=== PATIENT | female | born 1945 | race Caucasian/White ===

== ENCOUNTER 2022-10-29 08:14 | Inpatient (IN) ==
--- NOTE | 2022-07-27 15:53 | PAT Medication Instructions ---
Medication Instructions Date of Service July 27, 2022 Home Medications fluoxetine 20 mg capsule (Prozac) 20 mg PO QAM xxgngwl-btnunxlsra-RXE-caffeine 30 mg-50 mg-325 mg-40 mg capsule 1 cap PO Q6H PRN diazepam 5 mg tablet (Valium) 5 mg PO BID PRN gabapentin 100 mg capsule 100 mg PO QPM loperamide 2 mg capsule 2 mg PO Q4H PRN mirabegron 50 mg tablet,extended release 24 hr (Myrbetriq) 50 mg PO QAM pantoprazole 20 mg tablet,delayed release 20 mg PO QAM tolterodine 4 mg capsule,extended release 24 hr 4 mg PO QPM tretinoin 1 dose topical DAILY ASK your surgeon for instructions ykddcbk-llmlydhdvq-OKL-caffeine 30 mg-50 mg-325 mg-40 mg capsule 1 cap PO Q6H PRN STOP taking 24 hours before surgery tretinoin 1 dose topical DAILY DO NOT take the morning of surgery loperamide 2 mg capsule 2 mg PO Q4H PRN mirabegron 50 mg tablet,extended release 24 hr (Myrbetriq) 50 mg PO QAM Take morning of surgery With a small sip of water, OTHERWISE NOTHING TO EAT OR DRINK AFTER MIDNIGHT: pantoprazole 20 mg tablet,delayed release 20 mg PO QAM diazepam 5 mg tablet (Valium) 5 mg PO BID PRN(if needed) fluoxetine 20 mg capsule (Prozac) 20 mg PO QAM Take evening before surgery tolterodine 4 mg capsule,extended release 24 hr 4 mg PO QPM gabapentin 100 mg capsule 100 mg PO QPM diazepam 5 mg tablet (Valium) 5 mg PO BID PRN(if needed) Other Notes If you have any questions please call us at [phone] or [phone] or [phone] or [phone]
--- NOTE | 2022-08-02 14:04 | Anesthesiology Consultation ---
Date of Service August 02, 2022 Assessment & Plan (1) Encounter for pre-operative examination: - leukopenia, anemia, abnormal ua: Raquel with surgeon's office made aware. Optimization form sent to PCP, awaiting response. Chart Review Chart Review: Pending: Refer to Additional Notes / Consult section and Patient seen in Pre Admission Testing Teaching & Discussion Pre-Anesthesia Teaching/Discussion Notes: Instructed NPO after midnight before surgery, except medications with 15 cc of water. Medication instructions provided according to the PAT guidelines. History Surgery Operation Date: 08/16/22 11:55 Proposed Procedures p L2-L4 Decompression and Fusion, L4-S1 Hardware Removal, Possible L4-S1 Reinstrumentation, Spinal Cord Monitoring - Isak Mayes, Height/Weight Height: 5 ft 5 in Weight: 64 kg Allergies Allergy/AdvReac Type Severity Reaction Status Date / Time morphine Allergy Unknown family hx Verified 07/27/22 15:03 allergy to morphine. propranolol Allergy severe Verified 07/27/22 15:03 hypotension Medications Home Medications Medication Instructions Recorded Confirmed Last Taken fluoxetine 20 mg capsule (Prozac) 20 mg PO QAM 12/19/19 07/27/22 Unknown mqpnupg-dnmrsbpqmf-RHF-caffeine 30 1 cap PO Q6H PRN Migraine Headache 07/27/22 07/27/22 Unknown mg-50 mg-325 mg-40 mg capsule diazepam 5 mg tablet (Valium) 5 mg PO BID PRN Anxiety 07/27/22 07/27/22 Unknown gabapentin 100 mg capsule 100 mg PO QPM 07/27/22 07/27/22 Unknown loperamide 2 mg capsule 2 mg PO Q4H PRN Loose Stool 07/27/22 07/27/22 Unknown mirabegron 50 mg tablet,extended 50 mg PO QAM 07/27/22 07/27/22 Unknown release 24 hr (Myrbetriq) pantoprazole 20 mg tablet,delayed 20 mg PO QAM 07/27/22 07/27/22 Unknown release tolterodine 4 mg capsule,extended 4 mg PO QPM 07/27/22 07/27/22 Unknown release 24 hr tretinoin 1 dose topical DAILY 07/27/22 07/27/22 Unknown Past Medical History Medical History (Updated 08/02/22 @ 14:12 by Irene Joyner PA-C) Depression Fibromyalgia GERD (gastroesophageal reflux disease) controlled, stable per pt Hearing deficit BL ROBISON History of claustrophobia History of migraine resolved since d/c of propranolol IBS (irritable bowel syndrome) Imodium prn Spinal stenosis Urinary frequency chronic Urinary incontinence Patient denies h/o stroke, seizures, heart attack, heart failure, DM, HTN, blood clots or blood transfusions. Exercise / Class Metabolic Activity II 4-5 Yardwork/Stairs/Walk up hill (denies chest discomfort or shortness of breath with 1 FOS) Past Family History Family History Mother Pancreatic cancer Past Surgical History Surgical History H/O Billroth II operation H/O shoulder surgery Rt History of back surgery x 2 History of cataract surgery History of cholecystectomy History of colonoscopy History of esophagogastroduodenoscopy (EGD) History of knee replacement Left History of non-cataract eye surgery History of open reduction and internal fixation (ORIF) procedure LLE History of total abdominal hysterectomy and bilateral salpingo-oophorectomy Hx of appendectomy Hx of tonsillectomy Past Anesthesia History Other (post-op reaction of confusion/anxiety; family history of morphine reaction) History of PONV No Hx of PONV and No Hx of Motion Sickness Social History Smoking Status: Never smoker Do You Dip or Chew Tobacco: No Hx Alcohol Use: Yes (social) Alcohol type: wine alcohol intake frequency: a few times a week Hx Substance Use: No substance use type: does not use Review of Systems Snoring, denies witnessed apneas. Patient denies chest pain, shortness of breath, dyspnea on exertion, fever, chills, cough, wheezing, or palpitations. Physical Exam Vital Signs Vitals BP 114/75 P 55 TEMP 97.7 SP02 97% on RA RESP 17 Physical Full cervical extension range of motion without pain TMD 3.5 finger breadths Mallampati Score 2 Dentition: several crowns, denies chipped or loose teeth, caps, implants or bridges Lungs: normal respiratory effort. Good air movement, clear throughout to auscultation, no adventitious breath sounds Cardiac: regular rate and rhythm, no murmurs noted Carotid arteries: negative bruit bilat Lab Results Anesthesia Preop Results Results Anesthesia Widget: WBC 3.71 K/ul (4.8-10.8) L 08/02/22 Hgb 10.9 g/dl (12.0-16.0) L 08/02/22 Hct 33.5 % (37.0-47.0) L 08/02/22 Plt 160 K/uL (130-400) 08/02/22 Na 138 mmol/L (136-145) 08/02/22 K 4.5 mmol/L (3.5-5.1) 08/02/22 Cl 108 mmol/L (98-107) H 08/02/22 CO2 26 mmol/L (21-32) 08/02/22 BUN 19 mg/dl (6-23) 08/02/22 Creat 1.10 mg/dl (0.6-1.2) 08/02/22 Glucose Level 83 mg/dl (70-99(Fasting)) 08/02/22 PT 10.9 Seconds (9.0-12.0) 08/02/22 PTT 32.2 Seconds (21.0-31.0) H 08/02/22 INR 1.0 (0.9-1.1) 08/02/22 Urine Color Yellow 08/02/22 Urine Appearance Cloudy (Clear) A 08/02/22 Urine pH 5.0 (4.5-7.5) 08/02/22 Urine Specific [place] 1.011 (1.000-1.030) 08/02/22 Urine Protein Negative (Negative) 08/02/22 Urine Glucose (UA) Negative (Negative) 08/02/22 Urine Ketones Negative (Negative) 08/02/22 Urine Blood 1+ (Negative) H 08/02/22 Urine Nitrite Positive (Negative) A 08/02/22 Urine Bilirubin Negative (Negative) 08/02/22 Urine Urobilinogen Negative (Negative) 08/02/22 Urine Leukocyte Esterase 2+ (Negative) H 08/02/22 Urine WBC (Auto) >30 /hpf (0-5) H 08/02/22 Urine RBC (Auto) 0-4 /hpf (0-4) 08/02/22 Urine Hyaline Casts (Auto) 1-5 /lpf (0-5) 08/02/22 Urine Epithelial Cells (Auto) 20-30 /lpf (0-5) H 08/02/22 Urine Bacteria (Auto) 2+ (Negative) H 08/02/22 Blood Type A Positive 08/02/22 Antibody Screen NEGATIVE 08/02/22 Testing Electrocardiogram Date: 08/02/22 Sinus bradycardia, rate 52 bpm Chest X-Ray Date: 08/02/22 No acute cardiopulmonary findings. COVID-19 Risk Screen Screening Information COVID-19 Screen Date: 08/02/22 Exposure 21 Days Family/Household +COVID Last 21 Days: No Exposure 10 Days Any COVID Exposure Last 10 Days: No Symptoms Last 10 Days Experienced COVID Sx Last 10 Days: No + COVID 0-90 Days COVID + in Last 0-90 Days: No
[~2022-10-29 08:14] MED LIST: ACETAMINOPHEN 500 MG TAB PO SCH; CeleBREX 200 MG CAP PO SCH; GABAPENTIN 300 MG CAP PO SCH; LR 60ML/HR IV SCH; ceFAZolin 2000MG 2,000 MG/15 ML SYR IV SCH
[2022-10-29] MEDS ORDERED: MIDAZOLAM HCL 1 MG/ML 2ML VIAL ONE (08:24)
[2022-10-29] MEDS ORDERED: HYDROmorphone INJ 2 MG/ML SYR/VIAL ONE (08:24)
[2022-10-29] MEDS ORDERED: KETAMINE 50 MG/5 ML SYRINGE ONE (08:24)
--- NOTE | 2022-10-29 09:22 | History & Physical Bridge Note ---
Date of Service October 29, 2022 History & Physical Bridge Note I have examined the patient, reviewed the History & Physical and in the interval since the performance of the History & Physical I have noted the following changes of clinical significance: no changes noted
--- NOTE | 2022-10-29 09:23 | History & Physical Report ---
Date of Service October 29, 2022 Assessment & Plan (1) Lumbar stenosis with neurogenic claudication: Plan: L2-L4 decompression and fusion, L4-S1 hardware removal, possible L4-S1 reinstrumentation History of Present Illness Chief Complaint: Back and leg pain Primary Care Provider: Gary Deleon This is a 77-year-old female known to me presents with worsening back and bilateral knee pain after failing course of nonoperative care she is here for surgical invention. Allergies Allergy/AdvReac Type Severity Reaction Status Date / Time propranolol Allergy Severe severe Verified 10/29/22 08:44 hypotension morphine Allergy Unknown family hx Verified 10/29/22 08:44 allergy to morphine. Home Medications Medication Instructions Recorded Confirmed Type fluoxetine 20 mg capsule (Prozac) 20 mg PO QAM 12/19/19 10/29/22 History fcbhlcd-qdceaawwzi-COF-caffeine 30 1 cap PO Q6H PRN Migraine Headache 07/27/22 10/29/22 History mg-50 mg-325 mg-40 mg capsule diazepam 5 mg tablet (Valium) 5 mg PO BID PRN Anxiety 07/27/22 10/29/22 History gabapentin 100 mg capsule 100 mg PO QPM 07/27/22 10/29/22 History loperamide 2 mg capsule 2 mg PO Q4H PRN Loose Stool 07/27/22 10/29/22 History mirabegron 50 mg tablet,extended 50 mg PO QAM 07/27/22 10/29/22 History release 24 hr (Myrbetriq) tolterodine 4 mg capsule,extended 4 mg PO QPM 07/27/22 10/29/22 History release 24 hr (Detrol LA) tretinoin 1 dose topical DAILY 07/27/22 10/29/22 History trimethoprim 100 mg tablet 100 mg PO HS 10/19/22 10/29/22 History Past Med/Surg History Medical History Depression Fibromyalgia GERD (gastroesophageal reflux disease) controlled, stable per pt Hearing deficit BL ROBISON History of claustrophobia History of migraine resolved since d/c of propranolol Hx of syncope caused by hypotension was hospitalized at [facility] ~08/2022 - discontinued Inderal, no issues since; Hx: UTI (urinary tract infection) 07/2022 IBS (irritable bowel syndrome) Imodium prn Spinal stenosis Urinary frequency chronic Urinary incontinence Surgical History H/O Billroth II operation H/O shoulder surgery Rt History of back surgery x 2 History of cataract surgery History of cholecystectomy History of colonoscopy History of esophagogastroduodenoscopy (EGD) History of knee replacement Left History of non-cataract eye surgery History of open reduction and internal fixation (ORIF) procedure LLE History of total abdominal hysterectomy and bilateral salpingo-oophorectomy Hx of appendectomy Hx of tonsillectomy Family History Mother Pancreatic cancer Social History Smoking Status: Never smoker Second Hand Exposure: Yes (hx); Do You Dip or Chew Tobacco: No; Tobacco Cessation Education Requested by Patient: No Hx Alcohol Use: Yes (social) Alcohol type: wine and hard liquor Hx Substance Use: No Preferred Language: Maldivian Communication Ability: Effective Wet Finisher Required: No Beliefs That Will Affect Care: None Current Living Situation: Significant Other Other Information That Helps Us Care for You: No Feels Safe at Home: Yes Safety Concerns: Feels Safe At This Time Assistive Devices: Glasses and Hearing Aid - Bilateral Assistive Devices Comment: glasses for reading Physical Exam Physical Exam: Patient is alert and oriented Heart regular rhythm Lungs clear
[2022-10-29 09:34] LABS: BUN Creatinine Ratio 19.6 (10-20); Calcium 8.6 mg/dl (8.6-10.3); Creatinine Clr Calc Pharmacy 47.5 ml/min; Est GFR (African American) 70.6 ml/min; Est GFR (Non-African American) 60.9 ml/min
[2022-10-29 09:40] LABS: Partial Thromboplastin Ratio 1.2; Partial Thromboplastin Time 33.4 Seconds (21.0-31.0); Prothrombin Time 10.6 Seconds (9.0-12.0)
[2022-10-29] MEDS ORDERED: ceFAZolin 330 MG/ML 1 GM VIAL ONE (09:53)
[2022-10-29] MEDS ORDERED: BUPIVACAINE/EPINEPHRINE 0.25% 1:200,000 30 ML VIAL ONE (09:53)
[2022-10-29] MEDS ORDERED: DEXAMETHASONE SOD INJ 4 MG/ML VIAL ONE (10:50)
[2022-10-29] MEDS ORDERED: ROCURONIUM BROMIDE 10 MG/ML 5 ML VIAL IV ONE (10:50)
[2022-10-29] MEDS ORDERED: PROPOFOL IV EMULSION 10 MG/ML 20 ML VIAL IV ONE (10:50)
[2022-10-29] MEDS ORDERED: LIDOCAINE 2% 2 ML VIAL/AMP(20MG/ML) INFIL ONE (10:50)
[2022-10-29] MEDS ORDERED: ONDANSETRON INJ 2 MG/ML 2 ML VIAL ONE (10:50)
[2022-10-29] MEDS ORDERED: GLYCOPYRROLATE 0.2 MG/ML VIAL ONE (10:50)
[2022-10-29] MEDS ORDERED: SUGAMMADEX SODIUM 200 MG/2 ML VIAL IV ONE (10:51)
[2022-10-29] MEDS ORDERED: FLOSEAL HEMOSTATIC MATRIX 10ML TOP ONE (11:16)
[2022-10-29] MEDS ORDERED: ePHEDrine sulfate 50 MG/5 ML SYR ONE (11:41)
--- NOTE | 2022-10-29 12:35 | Operative Report ---
Post Operative Report Pre & Post Diagnosis Operation Date: 10/29/22 10:05 Pre-Op Diagnosis: Lumbar stenosis with neurogenic claudication Post-Op Diagnosis: Lumbar stenosis with neurogenic claudication I identified the patient and participated in the time-out.: Yes Procedure Operation Date: 10/29/22 10:05 Actual Procedures #1 removal of posterior instrumentation L4-S1. #2 exploration of fusion L4-S1. #3 lumbar decompression bilaterally facetectomies and foraminotomies L2-L3 L3-L4 per #4 posterior spinal fusion L2-L4. #5 placement posterior instrumentation L2-S1. #6 interbody fusion L3-L4. #7 placement of Spira 9 x 26 mm at L3-L4. #8 placement locally harvested morselized autograft in the posterior gutters. #9 placement I factor in the interbody space and infuse collagen sponge, master graft in the posterior lateral gutters. Surgeon Isak Mayes DO Claim Review Medical Director Thai Rios Estimated Blood Loss 350 Findings Consistent with Post-Op Diagnosis Specimens None Indications This is a 77-year-old female presents above-mentioned diagnosis after failing since course of nonoperative care she is here for surgical invention. Description of Procedure Patient was met with identified informed consent obtained. Patient was then taken to the operative suite underwent patient placed in a prone position on the Mehrdad table atop the Emiliano frame. All bony prominences well-padded eyes inspected to ensure no external pressure placed upon the. This point lumbar spine was prepped and draped in a sterile fashion. Sharp dissection with the assistance of Bovie cautery to form down to and exposing the lamina transverse processes of L2-L3 and instrumentation L4-L5 and S1 levels bilaterally. I then proceeded move the hardware bilaterally explore the fusion mass noting it to be mature and intact. Informed complete laminectomy of L3 and L2 including bilateral medial facetectomies and foraminotomies addressing severe spinal stenosis. Pedicle screws were then placed in L2-L3-L4 and S1 levels bilaterally with assistance of fluoroscopy and appropriate sized emmie placed. By way of transforaminal approach on the right complete discectomy of L3-L4 was performed endplates curetted to subcortical bleeding bone and a 9 x 26 mm Spira cage filled I factor tapped in position. The rods then locked into final position bilaterally. The transverse processes of L2-L3-L4 burred to subcortical bleeding bone. Infuse collagen sponge bone mass graft locally harvested morsel ized autograft was placed in the posterior gutters. 15 round VINOD inserted. The incision was then closed with 1 Vicryl to fascia 2-0 Vicryl subcutaneously and 4 Monocryl for final skin closure. Steri-Strips sterile dressing placed. Patient awakened taken to PACU stable condition. Please note spinal cord monitoring was utilized at the procedure no changes noted. Thai Rios was present at the entire procedure involved the patient positioning complex portion of the surgery and final skin closure. I attest to the content of the Intraoperative Record and any orders documented therein. Any exceptions are noted below.
[2022-10-29] MEDS ORDERED: PROMETHAZINE HCL 12.5 MG in SODIUM CHLORIDE 0.9% 50 ML IV PRN ×2 (13:16→14:44)
[2022-10-29] MEDS ORDERED: ATROPINE SULFATE 0.1 MG/ML 10ML SYR IV PRN (13:16)
[2022-10-29] MEDS ORDERED: HYDROmorphone INJ 2 MG/ML SYR/VIAL IV PRN (13:16)
[2022-10-29] MEDS ORDERED: ePHEDrine sulfate 50 MG/ML AMP IV PRN (13:16)
[2022-10-29] MEDS ORDERED: fentaNYL citrate PF 100 MCG/2 ML VIAL IV PRN (13:16)
[2022-10-29] MEDS ORDERED: ONDANSETRON INJ 2 MG/ML 2 ML VIAL IV PRN ×2 (13:16→14:44)
--- NOTE | 2022-10-29 13:55 | Anesthesiology Progress Note ---
Date of Service October 29, 2022 Anesthesia Post Procedure Vital Signs Vital Signs: Temp Pulse Pulse Resp BP Pulse Ox O2 Del Method 10/29/22 13:40 36.2 C L 61 12 108/57 L 99 Nasal Cannula 10/29/22 13:30 57 L 12 111/53 L 100 Nasal Cannula 10/29/22 13:20 66 15 112/58 L 100 Nasal Cannula 10/29/22 13:10 62 12 114/62 100 Oxymask 10/29/22 13:00 36.5 C 80 13 129/66 100 Oxymask 10/29/22 09:09 36.5 C 51 L 20 143/68 H 96 Room Air O2 Flow Rate 10/29/22 13:40 2 10/29/22 13:30 2 10/29/22 13:20 2 10/29/22 13:10 13 10/29/22 13:00 13 10/29/22 09:09 Pain Intensity Lower Back: Pain Intensity: 8 Transfer of Care Handoff Completed per policy Notes Mental Status: alert / awake / arousable and participated in evaluation Patient Amnestic to Procedure: Yes Nausea / Vomiting: adequately controlled Pain: adequately controlled Airway Patency, RR, SpO2: stable & adequate BP & HR: stable & adequate Hydration State: stable & adequate Anesthetic Complications: no major complications apparent
[2022-10-29] MEDS: LACTATED RINGER'S 1,000 ML IV SCH (14:35)
[2022-10-29] MEDS ORDERED: ALUMINUM/MAGNESIUM SUSP 30 ML UDC PO PRN (14:44)
[2022-10-29] MEDS ORDERED: DO NOT ADMINISTER FLU VACCINE PRN (14:44)
[2022-10-29] MEDS ORDERED: SOD PHOSPHATE/SOD BIPHOSPHATE ENEMA 132 ML BTL PR PRN (14:44)
[2022-10-29] MEDS ORDERED: ONDANSETRON 4 MG OD TAB PO PRN (14:44)
[2022-10-29] MEDS ORDERED: ACETAMINOPHEN 500 MG TAB PO PRN (14:44)
[2022-10-29] MEDS ORDERED: MAGNESIUM HYDROXIDE SUSP 30 ML UDC PO PRN (14:44)
[2022-10-29] MEDS ORDERED: hydrOXYzine HCl 25 MG TAB PO PRN (14:44)
[2022-10-29] MEDS ORDERED: diphenhydrAMINE Capsule 25 MG CAP PO PRN (14:44)
[2022-10-29] MEDS ORDERED: bisacodyL 10 MG SUPP PR PRN (14:44)
[2022-10-29] MEDS ORDERED: LOPERAMIDE HCL 2 MG CAP PO PRN (14:44)
[2022-10-29] MEDS ORDERED: HYDROmorphone INJ 1 MG/ML SYRINGE IV PRN (14:44)
[2022-10-29] MEDS ORDERED: ACETAMINOPHEN 1,000 MG/100 ML VIAL IV PRN (14:44)
[2022-10-29] MEDS ORDERED: NALOXONE HCL 0.4 MG/1 ML VIAL/CARP IV PRN (14:44)
[2022-10-29] MEDS ORDERED: LORazepam 2 MG/1 ML VIAL IV PRN (14:44)
[2022-10-29] MEDS ORDERED: HYDROmorphone INJ 0.5 MG/0.5 ML SYR IV PRN (14:44)
[2022-10-29] MEDS ORDERED: DO NOT ADMINISTER PNEUMOCOCCAL VACCINE PRN (14:44)
[2022-10-29] MEDS ORDERED: METOCLOPRAMIDE HCL INJ 5 MG/ML 2 ML VIAL IV PRN (14:44)
[2022-10-29] MEDS ORDERED: FAMOTIDINE 20 MG TAB PO PRN (14:44)
[2022-10-29] MEDS ORDERED: diazePAM 5 MG TABLET PO PRN (14:44)
--- NOTE | 2022-10-29 14:46 | Fluoroscopy Report ---
FL lumbar spine 2-3V CLINICAL HISTORY: L2-L4 DECOMP AND FUSION TECHNIQUE: 2 views were obtained with the C-arm in the OR with the above procedure. Total fluoroscopy time was 16.5 seconds. Radiation dose was 7.14 mGy. Comparison: Comparison is made to lumbar spine radiographs 07/25/2015 FINDINGS/IMPRESSION: Intraoperative images were obtained of L2-L4 decompression and fusion. Please correlate with intraoperative fluoroscopy and operative report. ACT 112: Negative or not required by law. Electronically signed by: Que Galdamez M.D. 10/29/2022 2:45 PM
[2022-10-29] MEDS ORDERED: BUTALBITAL/ASPIRIN/CAFFEINE 1 TAB TAB PO PRN (14:56)
[2022-10-29] MEDS ORDERED: CODEINE SULFATE 30 MG TAB PO PRN (14:58)
[2022-10-29] MEDS ORDERED: [UNRECOGNIZED DRUG - OTHER] SCH (16:00)
--- NOTE | 2022-10-29 16:29 | Consultation ---
Date of Consultation October 29, 2022 Assessment & Plan (1) Status post lumbar surgery: (2) Lumbar stenosis with neurogenic claudication: Post op day# 0 S/P L4-S1 removal hardware, L2-L4 decompression and fusion by Dr Mayes EBL#[id number] Pain management per ortho Wwound management per ortho PT/OT as appropriate DVT prophylaxis per ortho Incentive spirometry Monitor H&H for acute blood loss anemia; Pre-op Hgb: 10.9 (3) Depression: (4) Fibromyalgia: Continue fluoxetine, gabapentin (5) Urge incontinence: (6) Recurrent UTI: Continue Detrol, Myrbetriq, trimethoprim (7) IBS (irritable bowel syndrome): IBS-D Uses Imodium as needed DVT Prophylaxis SCDs Disposition per primary service Follows with Dr Deleon in [place] for routine care Pt was seen and care coordinated with Dr Douglas. See addendum Thank you for this consultation. We will follow the patient with you during their hospital stay. You can reach a member of the [facility] 13/[address] [facility] Supervising Physician Co-Signing Physician Notes Pt seen and examined by myself, Peace Douglas MD on the day of service. Care was coordinated with Liliana Braxton PA-C. 77yoF with PMhx of mood disorder, fibromyalgia, IBS recurrent UTIs and urinary incontinence who is s/p L4-S1 removal hardware, L2-L4 decompression and fusion by Dr Mayes, POD#0. At the time of my encounter, pt very drowsy, notes she had just received some pain medications. Denied any acute concerns but wanted me to let Dr. Mayes know that "he did a good job". Pt drowsy on exam, RRR, abdomen was soft and nontender. Continue TOPOGRAPHY TECHNICIAN fluoxetine for her mood disorder and gabapentin for her fibromyalgia. Continue TOPOGRAPHY TECHNICIAN Immodium prn for IBS Continue TOPOGRAPHY TECHNICIAN myrbetriq and tolterodine for her urinary incontinence/overactive bladder. Continue TOPOGRAPHY TECHNICIAN trimethoprim for her Hx of recurrent UTIs. Otherwise as above. History of Present Illness Requesting Physician: Dr Mayes Reason for Consultation: Post op medical management Attending Physician: Isak Mayes, History of Present Illness Patient is 77 y/o F with PMH depression, fibromyalgia, GERD, history of migraine, IBS, recurrent UTI, chronic urinary incontinence seen in medical consultation s/p L4-S1 removal hardware, L2-L4 decompression and fusion today by Dr Mayes. Post op patient reports doing well with pain fairly controlled. Last BM two days ago. States when has BM its always loose. She states when she has BM she always takes Imodium. Denies nausea, vomiting, fever/chills, diaphoresis, ROBISON , dizziness, CP, SOB, abdominal pain, paresthesias, weakness, extremity weakness, extremity edema, rashes, urinary symptoms. Allergies Allergy/AdvReac Type Severity Reaction Status Date / Time propranolol Allergy Severe severe Verified 10/29/22 08:44 hypotension morphine Allergy Unknown family hx Verified 10/29/22 08:44 allergy to morphine. Home Medications Medication Instructions Recorded Confirmed Type fluoxetine 20 mg capsule (Prozac) 20 mg PO QAM 12/19/19 10/29/22 History jvbfvrh-uhpirhycsp-RPW-caffeine 30 1 cap PO Q6H PRN Migraine Headache 07/27/22 10/29/22 History mg-50 mg-325 mg-40 mg capsule diazepam 5 mg tablet (Valium) 5 mg PO BID PRN Anxiety 07/27/22 10/29/22 History gabapentin 100 mg capsule 200 mg PO QPM 07/27/22 10/29/22 History loperamide 2 mg capsule 2 mg PO Q4H PRN Loose Stool 07/27/22 10/29/22 History mirabegron 50 mg tablet,extended 50 mg PO QAM 07/27/22 10/29/22 History release 24 hr (Myrbetriq) tolterodine 4 mg capsule,extended 4 mg PO PM 07/27/22 10/29/22 History release 24 hr (Detrol LA) tretinoin 1 dose topical DAILY 07/27/22 10/29/22 History trimethoprim 100 mg tablet 100 mg PO HS 10/19/22 10/29/22 History oxycodone 5 mg tablet 5 mg PO Q6H PRN pain #30 tabs 10/30/22 Rx tramadol 50 mg tablet 50 mg PO Q6H PRN pain, moderate 10/30/22 Rx #30 tabs Patient History Medical History (Updated 10/29/22 @ 20:02 by Liliana Braxton PA-C) Depression Fibromyalgia GERD (gastroesophageal reflux disease) controlled, stable per pt Hearing deficit BL ROBISON History of claustrophobia History of migraine resolved since d/c of propranolol Hx of syncope caused by hypotension was hospitalized at [facility] ~08/2022 - discontinued Inderal, no issues since; Hx: UTI (urinary tract infection) 07/2022 IBS (irritable bowel syndrome) Imodium prn Spinal stenosis Urinary frequency chronic Urinary incontinence Surgical History (Updated 10/29/22 @ 20:02 by Liliana Braxton PA-C) H/O Billroth II operation H/O shoulder surgery Rt History of back surgery x 2 History of cataract surgery History of cholecystectomy History of colonoscopy History of esophagogastroduodenoscopy (EGD) History of knee replacement Left History of non-cataract eye surgery History of open reduction and internal fixation (ORIF) procedure LLE History of total abdominal hysterectomy and bilateral salpingo-oophorectomy Hx of appendectomy Hx of tonsillectomy Family History Mother Pancreatic cancer Social History Smoking Status: Never smoker Second Hand Exposure: Yes (hx); Do You Dip or Chew Tobacco: No; Tobacco Cessation Education Requested by Patient: No Hx Alcohol Use: Yes (social) Alcohol type: wine and hard liquor Hx Substance Use: No Preferred Language: Arabic Communication Ability: Effective Coin Rolling Machine Operator Required: No Beliefs That Will Affect Care: None Current Living Situation: Significant Other Other Information That Helps Us Care for You: No Feels Safe at Home: Yes Safety Concerns: Feels Safe At This Time Assistive Devices: Walker Assistive Devices Comment: glasses for reading Review of Systems Review of Systems: All systems reviewed & are unremarkable except as noted in HPI & below Physical Exam Physical Exam: General: no acute distress, WDWN Head: normocephalic, atraumatic Eyes: conjunctiva non-injected, anicteric ENT: normal inspection external ears, nose, mucous membranes moist Neck: supple, trachea midline Lungs: clear, no respiratory distress, no wheezing/rhonchi/rales CV: RRR, no murmur, no pretibial edema Abd: normal BS, soft, non-tender Back: Surgical dressing in place, + VINOD drain in place with serosanguineous drainage Ext: no cyanosis, no calf tenderness; bilateral pedal pushes and pulls intact, sensation to light touch intact bilaterally Neuro: +drowsy, awakens to voice, A&O x 3, no focal deficits noted, normal affect Skin: warm, dry Results & Data Vital Signs (Past 12 Hours) Vital Signs Temp Pulse Pulse Resp BP BP Pulse Ox 10/29/22 16:22 36.4 C L 62 16 114/68 98 10/29/22 15:20 55 L 16 113/66 98 10/29/22 14:54 55 L 16 107/67 100 10/29/22 14:25 36.4 C L 59 L 20 102/61 99 10/29/22 13:55 62 20 112/59 L 100 10/29/22 13:40 36.2 C L 61 12 108/57 L 99 10/29/22 13:30 57 L 12 111/53 L 100 10/29/22 13:20 66 15 112/58 L 100 10/29/22 13:10 62 12 114/62 100 10/29/22 13:00 36.5 C 80 13 129/66 100 10/29/22 09:09 36.5 C 51 L 20 143/68 H 96 O2 Del Method O2 Flow Rate 10/29/22 16:22 Room Air 10/29/22 15:20 Room Air 10/29/22 14:54 Room Air 10/29/22 14:25 Room Air 10/29/22 13:55 Nasal Cannula 2 10/29/22 13:40 Nasal Cannula 2 10/29/22 13:30 Nasal Cannula 2 10/29/22 13:20 Nasal Cannula 2 10/29/22 13:10 Oxymask 13 10/29/22 13:00 Oxymask 13 10/29/22 09:09 Room Air Laboratory Results BMP 10/29/22 08:54 Sodium 141 Potassium 4.0 Chloride 108 H Carbon Dioxide 29 BUN 18 Creatinine 0.92 Glucose 86 Calcium 8.6
[2022-10-29] MEDS: ceFAZolin 1000MG 1,000 MG/7.5 ML SYR IV SCH (17:22)
[2022-10-29] MEDS: oxyCODONE HCL IR 5 MG TAB (IMMEDIATE RELEASE) PO PRN (17:27)
[2022-10-29] MEDS: TRIMETHOPRIM 100 MG TABLET PO SCH (20:24)
[2022-10-29] MEDS: OXYBUTYNIN CHLORIDE XL 5 MG TABCR PO SCH (20:24)
[2022-10-29] MEDS: DOCUSATE SODIUM/SENNA 50/8.6MG TAB PO SCH (20:25)
[2022-10-29] MEDS: GABAPENTIN 100 MG CAP PO SCH (20:25)
[2022-10-30] MEDS: LACTATED RINGER'S 1,000 ML IV SCH ×2 (00:46→11:46)
[2022-10-30] MEDS: traMADol HCL 50 MG TABLET PO PRN (00:51)
[2022-10-30] MEDS: ceFAZolin 1000MG 1,000 MG/7.5 ML SYR IV SCH (02:09)
[2022-10-30] MEDS: oxyCODONE HCL IR 5 MG TAB (IMMEDIATE RELEASE) PO PRN ×4 (04:43→23:31)
[2022-10-30] MEDS: POLYETHYLENE (MIRALAX) 17 GM PACK PO SCH ×4 (05:48→23:33)
[2022-10-30 07:32] LABS: Basophils # (auto) 0.01 K/uL (0.00-0.20); Basophils % (auto) 0.2 %; Eosinophils # (auto) 0.07 K/uL (0.00-0.50); Eosinophils % (auto) 1.1 %; Hematocrit (blood only) 24.8 % (37.0-47.0); Hemoglobin 7.7 g/dl (12.0-16.0); Immature Granulocytes # (auto) 0.01 K/uL (0.01-0.20); Immature Granulocytes % (auto) 0.2 %; Lymphocytes # (auto) 1.87 K/uL (1.20-3.40); Mean Corpuscular Hemoglobin 32.9 pg (25.0-34.0); Mean Platelet Volume 10.4 fL (9.4-12.4); Monocytes # (auto) 0.63 K/uL (0.11-0.59); Monocytes % (auto) 10.1 %; Neutrophils # (auto) 3.64 K/uL (1.40-6.50); Neutrophils % (auto) 58.4 %; Platelet Count 148 K/uL (130-400); RDW Coefficient of Variation 12.9 % (11.5-14.5); RDW Standard Deviation 49.7 fL (36.4-46.3); Red Blood Count 2.34 M/uL (4.20-5.40); White Blood Count 6.23 K/ul (4.8-10.8)
[2022-10-30 07:46] LABS: Calcium 7.6 mg/dl (8.6-10.3); Potassium 3.8 mmol/L (3.5-5.1)
[2022-10-30 07:51] LABS: BUN Creatinine Ratio 17.1 (10-20); Creatinine Clr Calc Pharmacy 57.6 ml/min; Est GFR (African American) 88.9 ml/min; Est GFR (Non-African American) 76.7 ml/min
[2022-10-30 07:59] LABS: RBC Morphology Unremarkable
[2022-10-30] MEDS: FLUoxetine HCL 20 MG CAP PO SCH (08:00)
[2022-10-30] MEDS: VIBEGRON 75 MG TAB PO SCH (08:00)
[2022-10-30] MEDS: dexAMETHasone 6 MG in SYRINGE 0 ML IV SCH (08:00)
--- NOTE | 2022-10-30 09:19 | Orthopedic Progress Note ---
Date of Service October 30, 2022 Assessment & Plan (1) Lumbar stenosis with neurogenic claudication: Plan: At this time initiate physical therapy monitor VINOD output continue to follow her hemoglobin hopefully discharge home home early next week. Admission and Anticipated Discharge Date Admission Date: October 29, 2022 Subjective Back pain controlled leg pain improved Physical Exam Physical Exam: Patient is currently in bed. Is distracted testing. Appears comfortable. Results & Data Vital Signs (Past 12 Hours) Vital Signs Temp Pulse Resp BP BP Pulse Ox O2 Del Method 10/30/22 08:02 36.6 C 67 16 104/62 99 Room Air 10/30/22 04:12 36.9 C 66 18 114/66 99 Room Air 10/29/22 22:51 36.3 C L 59 L 18 99/55 L 98 Room Air Queries Orthopedic Spine Acute Posthemorrhagic Anemia: Yes
--- NOTE | 2022-10-30 16:29 | Hospitalist Progress Note ---
Date of Service October 30, 2022 Assessment & Plan (1) Status post lumbar surgery: (2) Lumbar stenosis with neurogenic claudication: Plan: S/P L4-S1 removal hardware, L2-L4 decompression and fusion by Dr Mayes Acute Postoperative blood loss anemia Pain management, wound care, activity per ortho Continue PT/OT DVT prophylaxis per primary team Incentive spirometry Bowel regimen to prevent constipation Monitor CBC Hb 7.7 today (3) Depression: (4) Fibromyalgia: Plan: Continue fluoxetine, gabapentin (5) Urge incontinence: (6) Recurrent UTI: Plan: Continue Detrol, Myrbetriq, trimethoprim (7) IBS (irritable bowel syndrome): Plan: IBS-D Uses Imodium as needed DVT Prophylaxis SCDs Disposition Per primary service Admission and Anticipated Discharge Date Admission Date: October 29, 2022 Subjective Patient is seen and examined at bedside States having headache, back pain at surgical site today Denies any dyspnea, dizziness, nausea, vomiting, abdominal pain No other complaints Review of Systems Review of Systems: All systems reviewed & are unremarkable except as noted in Subjective Physical Exam Physical Exam: Physical Exam: Vitals signs as noted above General Appearance: Thin, frail, no apparent distress Head: normocephalic, Atraumatic Eyes: normal inspection, EOMI Neck: supple, Trachea midline Respiratory/Chest: Normal breath sounds, CTA, No accessory muscle use Cardiovascular: S1, S2, No murmur Abdomen/GI:Soft, Non tender, Bowel sounds present Back:+surgical site in dressing Extremities/Musculoskeletal:normal inspection, no edema Neurologic/Psych:AAOX3, grossly no focal neurological deficits Skin: normal color, warm Results & Data Results & Data Vital Signs (Past 12 Hours) Vital Signs Temp Pulse Pulse Resp BP BP Pulse Ox 10/30/22 14:58 37.0 C 67 16 125/68 98 10/30/22 11:00 36.6 C 60 16 113/65 98 10/30/22 08:02 36.6 C 67 16 104/62 99 O2 Del Method 10/30/22 14:58 Room Air 10/30/22 11:00 Room Air 10/30/22 08:02 Room Air Laboratory Results Short CBC 10/30/22 Range/Units 06:50 WBC 6.23 (4.8-10.8) K/ul Hgb 7.7 L (12.0-16.0) g/dl Hct 24.8 L (37.0-47.0) % Plt Count 148 (130-400) K/uL BMP 10/30/22 06:50 Sodium 135 L Potassium 3.8 Chloride 106 Carbon Dioxide 24 BUN 13 Creatinine 0.76 Glucose 108 H Calcium 7.6 L
[2022-10-30] MEDS: OXYBUTYNIN CHLORIDE XL 5 MG TABCR PO SCH (19:40)
[2022-10-30] MEDS: TRIMETHOPRIM 100 MG TABLET PO SCH (19:40)
[2022-10-30] MEDS: DOCUSATE SODIUM/SENNA 50/8.6MG TAB PO SCH (19:40)
[2022-10-30] MEDS: GABAPENTIN 100 MG CAP PO SCH (19:40)
[2022-10-30] MEDS: LORazepam 0.5 MG TAB PO PRN (21:49)
[2022-10-31] MEDS: traMADol HCL 50 MG TABLET PO PRN (02:38)
[2022-10-31] MEDS: POLYETHYLENE (MIRALAX) 17 GM PACK PO SCH ×3 (06:29→17:04)
[2022-10-31 07:36] LABS: Hematocrit (blood only) 23.2 % (37.0-47.0); Hemoglobin 7.7 g/dl (12.0-16.0); Mean Corpuscular Hemoglobin 32.8 pg (25.0-34.0); Mean Corpuscular Hgb Conc 33.2 g/dL (32.0-36.0); Mean Corpuscular Volume 98.7 fL (80.0-100.0); Mean Platelet Volume 10.6 fL (9.4-12.4); Platelet Count 154 K/uL (130-400); RDW Coefficient of Variation 12.9 % (11.5-14.5); RDW Standard Deviation 46.3 fL (36.4-46.3); Red Blood Count 2.35 M/uL (4.20-5.40); White Blood Count 6.16 K/ul (4.8-10.8)
[2022-10-31] MEDS: FLUoxetine HCL 20 MG CAP PO SCH (07:41)
[2022-10-31] MEDS: oxyCODONE HCL IR 5 MG TAB (IMMEDIATE RELEASE) PO PRN ×4 (07:41→22:38)
[2022-10-31] MEDS: VIBEGRON 75 MG TAB PO SCH (07:41)
[2022-10-31] MEDS: dexAMETHasone 6 MG in SYRINGE 0 ML IV SCH (07:42)
[2022-10-31 07:48] LABS: BUN Creatinine Ratio 14.7 (10-20); Calcium 7.9 mg/dl (8.6-10.3); Creatinine Clr Calc Pharmacy 58.3 ml/min; Est GFR (African American) 90.4 ml/min; Potassium 3.9 mmol/L (3.5-5.1)
--- NOTE | 2022-10-31 10:41 | Orthopedic Progress Note ---
Date of Service October 31, 2022 Assessment & Plan (1) Lumbar stenosis with neurogenic claudication: Plan: At this time continue physical therapy monitor VINOD output anticipate discharge home tomorrow. We have discussed her hemoglobin. She is stable and would like to continue without transfusion. Admission and Anticipated Discharge Date Admission Date: October 29, 2022 Subjective Back pain is controlled leg symptoms improved. She is ambulating halls without difficulty. She denies any shortness of breath or generalized weakness. Physical Exam Physical Exam: On exam patient sitting up in bed appears comfortable. Is constricted testing. Results & Data Vital Signs (Past 12 Hours) Vital Signs Temp Pulse Resp BP Pulse Ox O2 Del Method 10/31/22 07:25 37.0 C 65 16 115/63 98 Room Air Queries Orthopedic Spine Acute Posthemorrhagic Anemia: Yes
[2022-10-31] MEDS ORDERED: COUGH DROP (SUGAR FREE) LOZ 24 LOZ/1 BOX BUCCAL PRN (13:52)
--- NOTE | 2022-10-31 16:14 | Hospitalist Progress Note ---
Date of Service October 31, 2022 Assessment & Plan (1) Status post lumbar surgery: (2) Lumbar stenosis with neurogenic claudication: Plan: S/P L4-S1 removal hardware, L2-L4 decompression and fusion by Dr Mayes Acute Postoperative blood loss anemia Pain management, wound care, activity per ortho Continue PT/OT DVT prophylaxis per primary team Continue Incentive spirometry Bowel regimen to prevent constipation Monitor CBC Hb 7.7 today Likely discharge tomorrow per orthopedics Pain is controlled (3) Depression: (4) Fibromyalgia: Plan: Continue fluoxetine, gabapentin (5) Urge incontinence: (6) Recurrent UTI: Plan: Continue Detrol, Myrbetriq, trimethoprim (7) IBS (irritable bowel syndrome): Plan: IBS-D Uses Imodium as needed DVT Prophylaxis SCDs Disposition Per primary service Admission and Anticipated Discharge Date Admission Date: October 29, 2022 Subjective Patient is seen and examined at bedside Headache resolved Back pain improved Had PT eval for earlier today Denies any dyspnea, dizziness, nausea, vomiting, abdominal pain Family at bedside Review of Systems Review of Systems: All systems reviewed & are unremarkable except as noted in Subjective Physical Exam Physical Exam: Physical Exam: Vitals signs as noted above General Appearance: Thin, frail, no apparent distress Head: normocephalic, Atraumatic Eyes: normal inspection, EOMI Neck: supple, Trachea midline Respiratory/Chest: Normal breath sounds, CTA, No accessory muscle use Cardiovascular: S1, S2, No murmur Abdomen/GI:Soft, Non tender, Bowel sounds present Back:+surgical site in dressing Extremities/Musculoskeletal:normal inspection, no edema Neurologic/Psych:AAOX3, grossly no focal neurological deficits Skin: normal color, warm Results & Data Results & Data Vital Signs (Past 12 Hours) Vital Signs Temp Pulse Resp BP Pulse Ox O2 Del Method 10/31/22 15:20 37.0 C 67 16 112/64 98 Room Air 10/31/22 07:25 37.0 C 65 16 115/63 98 Room Air Laboratory Results Short CBC 10/31/22 Range/Units 07:08 WBC 6.16 (4.8-10.8) K/ul Hgb 7.7 L (12.0-16.0) g/dl Hct 23.2 L (37.0-47.0) % Plt Count 154 (130-400) K/uL BMP 09/10/23 07:08 Sodium 134 L Potassium 3.9 Chloride 102 Carbon Dioxide 29 BUN 11 Creatinine 0.75 Glucose 106 H Calcium 7.9 L
[2022-10-31] MEDS: OXYBUTYNIN CHLORIDE XL 5 MG TABCR PO SCH (20:33)
[2022-10-31] MEDS: TRIMETHOPRIM 100 MG TABLET PO SCH (20:33)
[2022-10-31] MEDS: GABAPENTIN 100 MG CAP PO SCH (20:34)
[2022-10-31] MEDS: DOCUSATE SODIUM/SENNA 50/8.6MG TAB PO SCH (20:34)
[2022-10-31] MEDS: LORazepam 0.5 MG TAB PO PRN (22:39)
[2022-11-01] MEDS: POLYETHYLENE (MIRALAX) 17 GM PACK PO SCH ×2 (00:25→05:46)
[2022-11-01] MEDS: oxyCODONE HCL IR 5 MG TAB (IMMEDIATE RELEASE) PO PRN (02:48)
[2022-11-01 06:15] LABS: Hematocrit (blood only) 22.7 % (37.0-47.0); Hemoglobin 7.4 g/dl (12.0-16.0); Mean Corpuscular Hemoglobin 32.7 pg (25.0-34.0); Mean Corpuscular Hgb Conc 32.6 g/dL (32.0-36.0); Mean Corpuscular Volume 100.4 fL (80.0-100.0); Mean Platelet Volume 10.5 fL (9.4-12.4); Platelet Count 162 K/uL (130-400); RDW Coefficient of Variation 12.8 % (11.5-14.5); RDW Standard Deviation 46.9 fL (36.4-46.3); Red Blood Count 2.26 M/uL (4.20-5.40); White Blood Count 6.61 K/ul (4.8-10.8)
[2022-11-01 06:52] LABS: BUN Creatinine Ratio 16.3 (10-20); Calcium 8.2 mg/dl (8.6-10.3); Creatinine Clr Calc Pharmacy 54.7 ml/min; Est GFR (African American) 83.6 ml/min; Est GFR (Non-African American) 72.1 ml/min; Potassium 3.5 mmol/L (3.5-5.1)
[2022-11-01] MEDS: dexAMETHasone 6 MG in SYRINGE 0 ML IV SCH (08:24)
[2022-11-01] MEDS: FLUoxetine HCL 20 MG CAP PO SCH (08:24)
[2022-11-01] MEDS: VIBEGRON 75 MG TAB PO SCH (08:24)
--- NOTE | 2022-11-01 10:30 | Discharge Summary ---
Date of Service November 01, 2022 Admission HPI Per Admitting Provider This is a 77-year-old female known to me presents with worsening back and bilateral knee pain after failing course of nonoperative care she is here for surgical invention. Principal Diagnosis Lumbar spinal stenosis with neurogenic claudication Discharge Data Allergies Allergy/AdvReac Type Severity Reaction Status Date / Time propranolol Allergy Severe severe Verified 10/29/22 08:44 hypotension morphine Allergy Unknown family hx Verified 10/29/22 08:44 allergy to morphine. Consultations 10/29/22 14:44 Consult Hospitalist Routine Procedures Performed Operation Date: 10/29/22 10:05 Actual Procedures p L2-L4 Decompression and Fusion, L4-S1 Reinstrumentation, Spinal Cord Monitoring(Not Applicable) - Isak Mayes DO s L4-S1 Hardware Removal, (Not Applicable) - Isak Mayes DO Ordered Studies 10/29/22 [place] lumbar spine 2-3V Routine Hospital Course (1) Lumbar stenosis with neurogenic claudication: Patient with lumbar depression fusion tolerated as well as taken to orthopedic floor postoperative. Postop day 1 she was up and ambulating progressive postop day #2 and 3. VINOD drain decreasing appropriately. We did discuss her hematocrit. She will refused a blood transfusion. She does however deny any shortness of breath or fatigue. Subsequently will discharge home with iron and see her in 2 weeks as scheduled. Total Time Total Time Spent Total Time Spent (In Minutes): 20 minutes Discharge Plan Discharge Items Patient Disposition: Home - Self-Care Reason For Visit: Lumbar Region Spinal Stenosis with Neurogenic Daysi Discharge Diagnosis: Lumbar spinal stenosis with neurogenic claudication Activity: As commented below Non-emergency contact: Primary Care Provider Call non-emergency contact if: you have any medication questions Follow-up/Referrals: Gary Deleon M.D. [Primary Care Provider] - Diet: Regular Addtl Attending Provider Instructions: ACTIVITY RECOMMENDATIONS: SELF CARE INSTRUCTIONS AFTER THORACIC/LUMBAR FUSIONS 1. You may walk to your tolerance. It is good exercise for your legs and back. Expect some back and intermittent leg aches and pains. 2. You may perform "counter-top" level activities (make a sandwich, shea with a project, etc.). 3. No bending or lifting of more than 10 pounds or back twisting of any nature (roll like a log when turning in bed). 4. You may ride in a car for 20-30 minutes at a time. No driving until after your first visit with your doctor. 5. Frequent changes of position and restricting sitting to 30 minutes at a time will help limit the amount of back spasms and stiffness you may experience. 6. You may discontinue the use of ambulatory aids (cane, crutches, etc.) once your strength and confidence allow. 7. You may investment broker the shower and let water strike your incision when you arrive home at least once daily. Do not take a tub bath, sit in a hot tub or go into a swimming pool until after your first recheck in the office. SPECIAL CARE INSTRUCTIONS: VERY IMPORTANT TO READ AND REVIEW A. Your surgical incision has been closed with a cosmetic suture under the skin that will dissolve in about 6 weeks. In 14 days, you can use a pair of clean scissors and cut the suture that is left outside of the skin at the ends of your incision. 1. The small skin tapes can be removed 7 days after surgery if they have not fallen off by that point. 2. You may keep the wound open to air as much as possible to promote healing after post-op day number 5 unless told otherwise by your doctor. 3. If you think the wound looks like it is becoming infected (redness or worsening drainage) and/or you are experiencing fever, chill or worsening back pain and muscle spasms, contact the office so that we may evaluate you as soon as possible. B. Complications are uncommon, but please contact us if you have any signs or symptoms of: 1. wound infection (fever higher than 102.5 degrees F, redness, separation of wound, drainage, or increasing pain from the incision) 2. blood clots in legs (pain, swelling, redness and warmth in legs) 3. urinary tract infection (fever higher than 102.5 degrees F, burning upon urination or increased frequency of urination) 4. nerve problems (inability to walk on your toes or heels, numbness, loss of bowel or bladder control) 5. any other symptoms that concern you C. Please call the office at if you have any concerns or questions about your operation or recovery. D. No smoking! Smoking drastically decreases the chance of a solid fusion. E. Do not take any anti-inflammatory medications (Indocin, Advil, Motrin, Aspirin, Naprosyn, etc.) as these may inhibit the chance of a solid fusion. Tylenol is okay to take for pain. MANAGING PAIN AFTER SPINAL SURGERY 1. Narcotic medication is intended for short-term use and will be provided for surgical pain. Surgical pain usually lasts for a period of 4-6 weeks. Narcotic medication includes Percocet, Vicodin, Darvocet, Tylenol #3 or Lortab. 2. Longer-term pain is more appropriately treated with non-narcotic medication such as Tylenol ES. 3. Muscle spasm is not appropriately treated with narcotics. Muscle relaxers such as Soma, Flexeril or Skelaxin can be used along with Tylenol ES. 4. Remember that we all live with some "aches and pains". This is not unusual or uncommon after an injury or as we get older. a. Back pain is expected and may include muscle spasms for 4 to 6 weeks after surgery. The pain should gradually improve. If the pain worsens for no apparent reason, please contact the office. b. Intermittent leg pain may also be experienced and should not be concerned about unless it worsens for no apparent reason. If so, please contact the office. 5. We will provide appropriate medication within the normal guidelines of their prescribed use. We will also be very cautious and aware of potential abuse and extended duration of patients' medication needs. a. Pain medications are for your comfort and to assist with sleep and rest so that the tissue can heal. They are not provided in order to return to normal activity and should not be used through the day. To do so or worsening pain at night can result from ongoing tissue damage and development of tolerance to the prescribed medicine. 6. Please allow 2-3 days to process refills. Prescriptions will not be mailed but must be picked up at the office. FOLLOW UP VISIT: Keep your scheduled follow-up appointment. Any questions, please call the office at . Pending Studies at Discharge: No Stand-Alone Forms: My [employer], Smoking Cessation Medications and DC Order Prescriptions: New tramadol 50 mg tablet 50 mg PO Q6H PRN (Reason: pain, moderate) Qty: 30 0RF oxycodone 5 mg tablet 5 mg PO Q6H PRN (Reason: pain) Qty: 30 0RF ferrous sulfate [Feosol] 325 mg (65 mg iron) tablet 325 mg PO BID Qty: 90 2RF Continued fluoxetine [Prozac] 20 mg capsule 20 mg PO QAM tolterodine [Detrol LA] 4 mg Capsule,Extended Release 24hr 4 mg PO PM [id number] mg Capsule 1 cap PO Q6H PRN (Reason: Migraine Headache) gabapentin 100 mg Capsule 200 mg PO QPM Myrbetriq 50 mg Tablet Extended Release 24 Hr 50 mg PO QAM diazepam [Valium] 5 mg Tablet 5 mg PO BID PRN (Reason: Anxiety) tretinoin 1 dose topical DAILY loperamide 2 mg Capsule 2 mg PO Q4H PRN (Reason: Loose Stool) Rx Instructions: administer after each loose stool until symptoms controlled; do not exceed 8 mg per 24 hrs trimethoprim 100 mg Tablet 100 mg PO HS Discharge Orders: Discharge Order (Routine); Ordered 11/01/22 Ordered By: Isak Mayes Admission Data Admit Date/Time: 10/29/22 12:38 Attending Provider: Isak Mayes Admit Provider: Isak Mayes Primary Care Provider: Gary Deleon Other Providers: Suzan Hemphill ; Won Powers
[2022-11-01] MEDS: traMADol HCL 50 MG TABLET PO PRN (10:53)
== END 2022-11-01 11:59 | disposition home or self-care (01) | DRG 454 ==
LOC: ASU 08:14 → 3E 12:38